=== PATIENT | female | born 1940 | race Caucasian/White ===

== ENCOUNTER 2016-09-18 05:02 | Inpatient (IN) | payer OTHER ==
[~2016-09-18] VITALS: Ht 152.4 cm; Wt 76.0 kg
[~2016-09-18 05:02] MED LIST: BENICAR20 MG PO; CALCIUM600 M1 PO; CELEBREX200 MG PO; CHEWABLE MULTI1 EACH PO; CLARITIN10 M3 PO; COENZYME Q10100 M1 PO; FISH OIL 1,0001 EA10 PO; FLONASE ALLERG9.9 ML BOTH NARES; FLONASE16 G1 IH; IMITREX100 MG PO; LO-DOSE ASPIRIN81 M1 PO; METFORMIN HCL500 MG PO; MULTIPLE VITAM1 EAC1 PO; PANTOPRAZOLE SO40 MG PO; PROAIR HFA8.5 GM IH; PROTONIX20 MG PO; RECLAST5 MG/100 M IV; SIMVASTATIN10 MG PO; TRAMADOL HCL50 MG PO; ULTRAM50 MG PO; URSODIOL300 MG PO; VITAMIN D2000 INTUN PO; VITAMIN D31000 UNIT PO; ZESTRIL10 MG PO
[2016-09-18 05:58] VITALS: BP 153/59
[2016-09-18 06:07] LABS: POINT-OF-CARE METER ID UU14174212
[2016-09-18 09:16] LABS: POINT-OF-CARE METER ID UU13113675
[2016-09-18 12:11] LABS: POINT-OF-CARE METER ID UU13113675
[2016-09-18 13:57] VITALS: BP 126/58
[2016-09-18 17:05] VITALS: BP 121/56
[2016-09-18 20:29] VITALS: BP 122/57
[2016-09-19 00:07] VITALS: BP 119/56
[2016-09-19 03:08] VITALS: BP 106/49
[2016-09-19 05:39] LABS: MCV 90.2 FL (83-99)
[2016-09-19 06:03] LABS: ANION GAP 5 MEQ/L (2-14); CHLORIDE 101 MEQ/L (99-109); GFR ESTIMATE (CALCULATED) > 59 mL/min/; GLUCOSE 148 mg/dL (70-99); POTASSIUM 4.5 MEQ/L (3.7-5.4); SAMPLE HEMOLYSIS CHECK 0; SAMPLE ICTERIC CHECK 0; SAMPLE LIPEMIA CHECK 0; SODIUM 134 MEQ/L (136-147); UREA NITROGEN (BUN) 20 mg/dL (9-23)
[2016-09-19 08:01] LABS: POINT-OF-CARE METER ID UU13113717
[2016-09-19 08:06] VITALS: BP 114/59
[2016-09-19 12:15] LABS: POINT-OF-CARE METER ID UU13113717
[2016-09-19 12:21] VITALS: BP 127/58
[2016-09-19 16:08] VITALS: BP 129/53
[2016-09-19 22:22] LABS: POINT-OF-CARE METER ID UU13113717
[2016-09-20 00:21] VITALS: BP 113/55
[2016-09-20 05:47] LABS: HEMATOCRIT 30.8 % (36.0-46.0); MCV 89.8 FL (83-99)
[2016-09-20 07:13] LABS: POINT-OF-CARE METER ID UU13113717
[2016-09-20] MEDS ORDERED: ASPIRIN EC325 MG PO (07:50)
[2016-09-20] MEDS ORDERED: HYDROCODON-ACE1 EAC7 PO (07:52)
[2016-09-20 08:05] VITALS: BP 126/58
== END 2016-09-20 15:04 | disposition home or self-care (01) | DRG 470 ==
LOC: 3EAST 05:02 → 2SOUTH 05:02 → 3EAST 13:27 → 2SOUTH 13:30 → 3EAST 09-20 15:04
PROVIDERS: Orthopaedic Surgery
PROC: 0SRC0J9 Replacement of Right Knee Joint with Synthetic Substitute, Cemented, Open Approach (ICD-10-PCS; principal; 2016-09-18)
DX: M17.11 Unilateral primary osteoarthritis, right knee (principal); I10 Essential (primary) hypertension; M81.0 Age-related osteoporosis without current pathological fracture; K21.9 Gastro-esophageal reflux disease without esophagitis; E78.5 Hyperlipidemia, unspecified; G43.909 Migraine, unspecified, not intractable, without status migrainosus; I36.1 Nonrheumatic tricuspid (valve) insufficiency; I34.0 Nonrheumatic mitral (valve) insufficiency; J30.2 Other seasonal allergic rhinitis; E11.9 Type 2 diabetes mellitus without complications; Z79.84 Long term (current) use of oral hypoglycemic drugs; Z79.82 Long term (current) use of aspirin
CPT/HCPCS: 80048; 82948; 85014; 85018; 99202; J0690; J1815; J1885; J2250; J3370; J7050; S0020